=== PATIENT | female | born 1970 | race Two or more races ===

== ENCOUNTER 2024-06-28 10:11 | Outpatient (RCR) | payer MEDICAID, SELFPAY ==
--- NOTE | 2024-06-21 12:12 | CTCCONSULT_ITS ---
[facility] [address] [place], [place] [address] Consultation Note Date: 06/21/2024 MR#: [id number] Name: DAMIR SHORE : 1970 Dx: C50.411 Malignant neoplasm of upper-outer quadrant of right female breast Attending physician. Edi Diego PA-C Referring physician. Francisco Rudolph MD Reason for consultation. Patient with stage IIIb neoadjuvant chemo surgery referred for radiation [facility]. History of Present Illness: 54-year-old lady who felt a lump in her right breast November 2022. Due to i nsurance issues there was a delay and MRI 07/05/2023 revealed a 3.3 cm irregular mass in the right [address] at 10:00 and 1.5 cm lobular lesion left breast at 10:00. Subsequent biopsy revealed right breast C A. ER/NV positive HER2/naga negative by FISH. Left breast biopsy negative. Subsequent MRI 11/08/2023 tumor affecting most of the right breast anterior and outer region with skin involvement. There was also pathological right axilla lymphadenopathy. Clinically peau d'orange with erythema inflammatory type T4bN1 stage IIIb. Underwent neoadjuvant chemo AC 4 cycles Taxol x 12 followed by lumpectomy an d sentinel node biopsy performed by Dr. Bernardo 05/15/2024. Complete response pT0pN0. Patient now ref erred for radiation oncology consultation. Past Medical History: History of diabetes Meds. Jardiance vitamin D3 Family history. Uncle had prostate cancer Social History: Has worked as a ict security specialist ; denies drinking smoking Review of Systems: Noncontributory Physical Exam: General: Well-appearing lady no acute distress HEENT: Atraumatic normocephalic extraocular is intact no oral lesion no cervical or supraclavicular a denopathy CV: Right breast well-healed surgical changes no gross tumor felt in breast or axillary area; chest c lear to auscultation ABD: Soft no organomegaly or tenderness EXT: No signs of clubbing or edema Assessment:1. Patient with locally advanced stage IIIb right breast CA ER NV positive HER2/naga negat fariba. Clinically with peau d'orange T4bN1. 2. Neoadjuvant chemo followed by surgery 05/05/2024 with excellent complete response. 3. Will now schedule for radiation therapy to the residual tissue right breast and regional node brenna ring sites of supra clav axilla. Standard fractionation due to need to treat regional node bearing s ites. Side effects explained. 4. Thank you very much for allowing me to evaluate and manage this patient. Cc: MD Mikey Lucas MD Electronically signed by: Jani Yun MD, DABR 06/21/2024 12:10 PM
--- NOTE | 2024-06-21 12:21 | CTCTXPLN_ITS ---
[facility] [address] [place], [place] [address] Physician Clinical Treatment Planning Note Date of Service: 06/21/2024 Name: DAMIR GRADYSHALOM VenturaB.: 1970 The patient has agreed to proceed with Radiation therapy. Tests and supporting medical records were interpreted to assist in defining the tumor location and extent of disease. Further imaging will be necessary to contour and delineate the volume to which the XRT will be provided. A. Treatment Intent: Curative B. Modality: 15 MV C. Requested Technique: 3D D. Treatment Site: Right breast regional nodes E. Critical structures to be contoured on plan: F. In order to accomplish this plan, I am ordering/Prescribing the followin. Simulations (s) will be performed to accomplish a reproducible treatment position, to determine op timal treatment portals/beam arrangements, to design beam modifying devices and verify treatment port als on patient prior to the commencement of Radiation Therapy. Right breast 2. Devices; for immobilization and beam shaping: Vac-Rhona 3. CT Guidance for placement of XRT broussard Scan area: 4. Portal images Frequency: 5. Invivo transit dose measurement once per week on all VMAT patients. 6. Special Physics Consult Requested for: 7. Other requests: Special procedures someone getting chemo and radiation G. Dose Objectives: Electronically signed by: Jani Yun M.D. 06/21/2024 12:19 PM
--- NOTE | 2024-06-21 12:24 | CTCTXPLNST_ITS ---
Radiation Oncology Treatment Planning Sheet Name: DAMIR SHORE MR#: [id number] : 1970 Dx: C50.411 Malignant neoplasm of upper-outer quadrant of right female breast Date of Service: 06/21/2024 Account #: ?? Pt Treatment Intent: curative palliative other: Stage: Procedure CPT # Ordered Spec. Procedure 01848 1 Christian Complex (set-up) 44567 Right breast/E boost 2 Christian Simple 12489 1 IMRT Plan 38275 MLC Devices VMAT 77467 Christian 3 D 44674 Right breast supra clavicle PAB 1 TRTMT dev Complex 17847 Vac-Rhona 2 tangents supra Clav PAB E boost 6 TRTMT dev simple 04508 1 Basic Josh 08471 7 Special Dosimetry 75066 Spec Physics 14501 Port Films 11376 5 SRS Cranial/1FX 19589 SBR 5 FX or Less /ex: 5 = 5 fx 30806 IMRT Simple 04092 IMRT Complex 72625 IGRT 72490 Rad del com 6-10 73611 6300 35 Rad del com 11- 73960 Cont Med Physics 97071 7 Treatment Planning 68778 1 Rad del com 20 mev 65653 Rad del inter 6-10 57879 Rad del inter 11 20461 Rad del simple 6-10 26645 Rad del simple 11 11082 Special Port Plan 54149 TRTMT dev inter 23255 Isodose Complex 09324 Isodose simple 28784 Resp Motion Mgmt Simulation 04824 Placement of Fiducial Markers 19719 Electronically Signed By: Jani Yun MD, KEOR 06/21/2024 12:22 PM
== END 2024-06-30 23:59 | disposition home or self-care (01) ==
LOC: SCTC 10:11
PROVIDERS: PCP Family Medicine; Referring Provider Internal Medicine Hematology & Oncology; Visit Provider Radiology Therapeutic Radiology
DX: C50.411 Malignant neoplasm of upper-outer quadrant of right female breast (principal); Z17.0 Estrogen receptor positive status [ER+]; Z17.21 Progesterone receptor positive status; Z17.32 Human epidermal growth factor receptor 2 negative status
CPT/HCPCS: 77014; 77290; 77334; 99213; G0463

== ENCOUNTER 2024-07-28 10:47 | Outpatient (RCR) | payer MEDICAID, SELFPAY ==
--- NOTE | 2024-07-10 12:29 | CTCSNOTE_ITS ---
[facility] [address] [place], [place] [address] Simple Simulation Note Date: 07/10/2024 MR#: [id number] Name: DAMIR SHORE : 1970 Port was taken and the field size location and blocks were checked. (A) The port was noted to be in ideal position along with its blocks. ( Electronically signed by: Jani Yun MD, DABR 07/10/2024 12:26 PM
== END 2024-07-28 23:59 | disposition home or self-care (01) ==
LOC: SCTC 10:47
PROVIDERS: PCP Family Medicine; Referring Provider Family Medicine; Visit Provider Radiology Therapeutic Radiology
DX: Z51.0 Encounter for antineoplastic radiation therapy (principal); C50.411 Malignant neoplasm of upper-outer quadrant of right female breast; Z17.0 Estrogen receptor positive status [ER+]; Z17.21 Progesterone receptor positive status; Z17.32 Human epidermal growth factor receptor 2 negative status; Z90.11 Acquired absence of right breast and nipple; Z92.21 Personal history of antineoplastic chemotherapy
CPT/HCPCS: 77280; 77295; 77300; 77334; 77336; 77412; 77417

== ENCOUNTER 2024-08-28 10:44 | Outpatient (RCR) | payer MEDICAID, SELFPAY ==
--- NOTE | 2024-07-31 13:58 | CTCTRTNOTE_ITS ---
[facility] [address] [place], [place] [address] Weekly Management Date: 07/31/2024 ?? Name: DAMIR SHORE : 1970 A. Patient is currently at 2700 cGy. B. Patient is tolerating treatment well. C. Patient is having the following side effects: mild skin reaction. . D. Resume radiation therapy. Electronically signed by: Jani Yun M.D. 07/31/2024 1:56 PM
--- NOTE | 2024-08-14 12:55 | CTCTRTNOTE_ITS ---
[facility] [address] [place], [place] [address] Weekly Management Date: 08/14/2024 ?? Name: DAMIR SHORE : 1970 A. Patient is currently at getting a boost at 360 cGy. Completed 4140 centigrade photons. B. Patient is tolerating treatment well. Moderate dry desquamation right axilla. C. Resume radiation therapy. Electronically signed by: Jani Yun M.D. 08/14/2024 12:51 PM
== END 2024-08-28 23:59 | disposition home or self-care (01) ==
LOC: SCTC 10:44
PROVIDERS: PCP Family Medicine; Referring Provider Family Medicine; Visit Provider Radiology Therapeutic Radiology
DX: Z51.0 Encounter for antineoplastic radiation therapy (principal); C50.411 Malignant neoplasm of upper-outer quadrant of right female breast; Z17.0 Estrogen receptor positive status [ER+]; Z17.21 Progesterone receptor positive status; Z17.32 Human epidermal growth factor receptor 2 negative status; L59.8 Other specified disorders of the skin and subcutaneous tissue related to radiation; Y84.2 Radiological procedure and radiotherapy as the cause of abnormal reaction of the patient, or of later complication, without mention of misadventure at the time of the procedure
CPT/HCPCS: 77336; 77412; 77417

== ENCOUNTER 2024-09-12 09:42 | Outpatient (RCR) | payer MEDICAID, SELFPAY ==
--- NOTE | 2024-09-12 10:34 | CTCTSUMM_ITS ---
[facility] [address] [place], [place] [address] Treatment Summary Date: 09/12/2024 MR#: [id number] Name: DAMIR SHORE : 1970 Dx: C50.411 Referring Physician: Francisco Rudolph MD (A) Diagnosis: [ICD10] C50.411 Malignant neoplasm of upper-outer quadrant of right female breast (B) Aim of Treatment: ??Curative (C) Concomitant Chemotherapy: Sequential (D) Radiation Dates: 07/10/2024 through 08/28/2024 Treatment Prescription PAB PAB 6 MV PHOT 325 cGy 25 13 cGy Approved supraclav AP 6 MV PHOT 4,500 cGy 25 180 cGy Approved 10 E boost Electron boost 15 MeV E- 1,260 cGy 7 180 cGy Approved R breast 2 FIELD SEG 15 MV PHOT 5,040 cGy 28 180 cGy Approved (E) All broussard were treated using customized MLC Blocks (F) Finding at Discharge: Patient seen for first follow-up on 09/12/2024, skin reaction appears to be satisfactory and recovering. Experiencing some neuropathy lower extremities. (G) Discharge Instructions and F/U Appt was given: The patient was also advised to continue follow-up with Dr. Rudolph and primary care physician: Cc: Francisco Rudolph MD Electronically signed by: Jani Yun MD, MARIANO 09/12/2024 10:32 AM
== END 2024-09-27 23:59 | disposition home or self-care (01) ==
LOC: SCTC 09:42
PROVIDERS: PCP Family Medicine; Referring Provider Family Medicine; Visit Provider Radiology Therapeutic Radiology
DX: C50.411 Malignant neoplasm of upper-outer quadrant of right female breast (principal); Z17.0 Estrogen receptor positive status [ER+]; Z17.21 Progesterone receptor positive status; Z17.32 Human epidermal growth factor receptor 2 negative status; Z92.3 Personal history of irradiation; G62.9 Polyneuropathy, unspecified
CPT/HCPCS: 99212; G0463

== ENCOUNTER → 2024-11-29 | Outpatient (CLI) | payer MEDICAID, SELFPAY ==
--- NOTE | 2024-11-29 14:20 | XR_ITS ---
Examination: Bone densitometry Date and time of exam:November 29, 2024 1442 hours INDICATIONS: Menopause age 43, diabetic, right breast cancer diagnosis Technique: Lumbar spine and hip total bone mineralization values of an calculated. Peak reference and age match control results have been displayed. Findings: Lumbar spine total bone mineralization is1.048 gm/cm2. This is 0.0 standard deviations at peak reference. This is 1.1 standard deviations above age-matched controls. Hip total bone mineralization is 0.800 gm/cm2 This is 1.2 standard deviations below peak reference. This is 0.5 standard deviations below age-matched controls Impression: There is normal mineralization based on lumbar spine measurements. There is osteopenia based on hip measurements
== END | disposition home or self-care (01) ==
PROVIDERS: PCP Internal Medicine Hematology & Oncology; Referring Provider Internal Medicine Hematology & Oncology; Visit Provider Internal Medicine Hematology & Oncology
DX: M85.88 Other specified disorders of bone density and structure, other site (principal); C50.411 Malignant neoplasm of upper-outer quadrant of right female breast
CPT/HCPCS: 77080